=== PATIENT | male | born 1980 | race African-American/Black ===

== ENCOUNTER 2017-04-28 11:12 | Emergency (ER) | payer SELFPAY ==
[~2017-04-28] VITALS: Ht 180.3 cm; Wt 70.3 kg
[~2017-04-28 11:12] MED LIST: PERCOCET 5/31 TABLET PO
[2017-04-28 12:39] VITALS: BP 141/83
== END 2017-04-28 12:39 | disposition home or self-care (01) ==
LOC: EME 11:12
DX: S70.01XA Contusion of right hip, initial encounter (principal); S70.211A Abrasion, right hip, initial encounter; W13.8XXA Fall from, out of or through other building or structure, initial encounter; Y92.008 Other place in unspecified non-institutional (private) residence as the place of occurrence of the external cause
CPT/HCPCS: 73502; 99281; 99284